=== PATIENT | male | born 2000 | race Caucasian/White ===

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

== ENCOUNTER → 2023-09-23 | Outpatient (CLI) | payer BC ==
[2023-09-23 17:27] LABS: BASO # 0.01 K/mm3 (0.02-0.10); EOS # 0.09 K/mm3 (0.04-0.40); EOS % 1.4 % (0.0-4.0); HEMOGLOBIN 14.3 g/dL (12.5-16.1); MEAN CELL VOLUME 83 fl (78-95); MEAN CORPUSCULAR HEMOGLOBIN 27 pg (26-32); MEAN CORPUSCULAR HGB CONC 33 g/dL (33-37); MEAN PLATELET VOLUME 9.2 fl (7.4-10.4); MONO # 0.53 K/mm3 (0.20-0.80); NEU # 3.22 K/mm3 (1.40-6.50); PLATELET COUNT 241 K/mm3 (130-400); RED BLOOD COUNT 5.21 M/mm3 (4.20-5.60); RED CELL DISTRIBUTION WIDTH 12.7 % (11.5-14.5); WHITE BLOOD COUNT 6.4 K/mm3 (4.8-10.8)
[2023-09-23 17:31] LABS: ALBUMIN 4.6 g/dL (3.5-5.0)
[2023-09-23 17:32] LABS: CALCIUM 9.4 mg/dL (8.3-10.5)
[2023-09-23 17:34] LABS: TOTAL PROTEIN 7.5 g/dL (6.4-8.3)
[2023-09-23 17:36] LABS: TOTAL BILIRUBIN 0.9 mg/dL (0.2-1.2)
== END ==
LOC: LAB 17:05
PROVIDERS: Physician Assistant
DX: R10.12 Left upper quadrant pain (principal)

== ENCOUNTER → 2024-10-06 | Outpatient (CLI) | payer BC | LOC: CARDREHAB 13:27 | DX: G47.33 Obstructive sleep apnea (adult) (pediatric) (principal) | CPT/HCPCS: G0399 ==